=== PATIENT | male | born 1970 | race Caucasian/White ===

== ENCOUNTER 2017-03-18 16:43 | Emergency (ER) | payer MEDICAID, OTHER ==
[2017-03-18] MEDS: KETOROLAC 15 MG INJ IM (18:31)
== END 2017-03-18 19:42 | disposition home or self-care (01) ==
LOC: FTE 16:43
DX: B02.29 Other postherpetic nervous system involvement (principal); B02.8 Zoster with other complications
CPT/HCPCS: 96372; 99284-25